=== PATIENT | female | born 1985 | race Caucasian/White ===

== ENCOUNTER 2017-03-07 17:09 | Observation (INO) | payer OTHER ==
[~2017-03-07] VITALS: Ht 165.1 cm; Wt 52.7 kg
[2017-03-07] MEDS ORDERED: ZIPRASIDONE 20 MG INJ IM ONE ×2 (18:00)
[2017-03-07] MEDS ORDERED: LORazepam 2 MG/ML, 1ML IM ONE (18:00)
[2017-03-07] MEDS ORDERED: LORazepam 2 MG/ML, 1ML ONE (18:01)
[2017-03-07 18:18] LABS: HEMATOCRIT 44.7 % (34.6-47.8); HEMOGLOBIN 14.9 g/dL (11.7-16.4); WHITE BLOOD COUNT 7.7 x10^3/uL (3.4-10)
[2017-03-07 18:28] LABS: ASPARTATE AMINO TRANSFERASE 19 U/L (15-37); BLOOD UREA NITROGEN 18 mg/dL (7-18)
[2017-03-07 18:34] LABS: ACETAMINOPHEN < 2 mcg/mL (10-30)
[2017-03-07] MEDS ORDERED: HALOPERIDOL 5 MG TABLET PO PRN (20:30)
[2017-03-07] MEDS ORDERED: ONDANSETRON ODT 4 MG PO PRN (20:30)
[2017-03-07 21:12] LABS: DAU SCREEN DISCLAIMER
[2017-03-07 22:00] VITALS: BP 104/64
[2017-03-08 08:02] VITALS: BP 108/74
[2017-03-08 20:00] VITALS: BP 104/75
[2017-03-09 08:38] VITALS: BP 110/76
[2017-03-09] MEDS ORDERED: LORazepam 1MG TABLET PO PRN (12:00)
[2017-03-09 19:09] VITALS: BP 122/84
[2017-03-09] MEDS: OLANZAPINE 5 MG TABLET PO SCH (20:07)
[2017-03-10 08:17] VITALS: BP 109/76
[2017-03-10] MEDS: OLANZAPINE 5 MG TABLET PO SCH ×2 (09:13→20:30)
[2017-03-10 19:31] VITALS: BP 112/77
[2017-03-11] MEDS: OLANZAPINE 5 MG TABLET PO SCH ×2 (08:01→20:17)
[2017-03-11 08:14] VITALS: BP 108/67
[2017-03-11] MEDS: ACETAMINOPHEN 325 MG TABLET PO PRN (16:28)
[2017-03-11 20:03] VITALS: BP 105/71
[2017-03-12 07:21] VITALS: BP 115/77
[2017-03-12] MEDS: OLANZAPINE 5 MG TABLET PO SCH (08:03)
[2017-03-12] MEDS: ACETAMINOPHEN 325 MG TABLET PO PRN (09:46)
== END 2017-03-12 12:59 ==
LOC: ED 20:48 → EDIP 21:21 → 3E 22:04
PROVIDERS: ADMIT Family Medicine; ATTEND Family Medicine
DX: F32.9 Major depressive disorder, single episode, unspecified (principal); F12.90 Cannabis use, unspecified, uncomplicated; F23 Brief psychotic disorder
CPT/HCPCS: 36415; 80053; 80307; 80329; 81003; 84703; 85025; 96372; 99285; G0378; J2060; J3486; G0479; G0480